=== PATIENT | male | born 1980 | race Caucasian/White ===

== ENCOUNTER 2018-01-18 18:57 | Emergency (ER) | payer MEDICAID ==
[2018-01-18] MEDS: HYDROCODONE/APAP (10/325) TAB PO (21:35)
== END 2018-01-18 21:36 | disposition home or self-care (01) ==
LOC: FTE 18:57
DX: B02.9 Zoster without complications (principal)
CPT/HCPCS: 99283; Z7502

== ENCOUNTER 2018-03-29 11:45 | Emergency (ER) | payer MEDICAID ==
[2018-03-29] MEDS: FENTAnyl 50 MCG/ML VIAL IV (12:16)
[2018-03-29] MEDS: PROPOFOL 200 MG INJ IV ×2 (12:19→12:31)
== END 2018-03-29 14:20 | disposition home or self-care (01) ==
LOC: E/R 11:45
DX: M24.411 Recurrent dislocation, right shoulder (principal)
CPT/HCPCS: 23650; 73020; 73030-RT; 94770; 99285-25

== ENCOUNTER 2018-04-07 10:46 | Emergency (ER) | payer MEDICAID ==
[2018-04-07] MEDS: ACETAMINOPHEN 325 MG TAB PO (11:29)
[2018-04-07] MEDS: ALBUTEROL 0.083% (NEB) 2.5 MG/3 ML AMP HHN (11:32)
== END 2018-04-07 12:50 | disposition home or self-care (01) ==
LOC: FTE 10:46
DX: J06.9 Acute upper respiratory infection, unspecified (principal)
CPT/HCPCS: 71045; 87400; 94664; 99284-25